=== PATIENT | male | born 1975 | race Caucasian/White ===

== ENCOUNTER 2021-10-19 14:42 | Outpatient (CLI) | payer OTHER, SELFPAY ==
--- NOTE | 2021-10-19 15:30 | CT_ITS ---
WS: [id number] CT TEMPORAL BONES TECHNIQUE: Noncontrast CT of the temporal bones with coronal and sagittal reformatted images. CLINICAL INFORMATION: chronic otitis media COMPARISON: Outside CT sinus August 17, 2021 DLP: 305.[address] scans at [facility] use at least one of these dose optimization techniques: automated e xposure control; mA and/or kV adjustment per patient size (includes targeted exams where dose is matc hed to clinical indication); or iterative reconstruction. FINDINGS: Mild mucosal thickening RIGHT mastoid tip. LEFT mastoid air cells well aerated. Normal post erior nasopharynx. Mild mucosal thickening RIGHT maxillary sinus. Visualized paranasal sinuses are we ll aerated. RIGHT: Mild mucosal thickening RIGHT mastoid tip. Previously described debris in the RIGHT external auditory canal has resolved. RIGHT EAC is well aerated today. Normal scutum. Ossicles are normal in appearanc e. Middle ear is well aerated. Normal tegmen tympani. Semicircular canals and cochlea are normal in a ppearance. Prussak's space is normal. Normal inner ear structures. Normal vestibular aqueduct. Facial nerve recess is normal. LEFT: Mastoid air cells are well aerated. Normal external auditory canal. Ossicles are normal in appearance . Middle ear is well aerated. Normal tegmen tympani. Semicircular canals and cochlea are normal in ap pearance. Prussak's space is normal. Normal inner ear structures. Normal vestibular aqueduct. Facial nerve recess is normal. Visualized intracranial contents and posterior fossa are normal. CT/CT temporal bone wo con* [id number] IMPRESSION: 1. Mild mucosal thickening RIGHT mastoid tip. RIGHT external auditory canal is well aerated today. 2. LEFT mastoid air cells well aerated. 3. Middle ears are well aerated bilaterally. 4. Ossicles are normal bilaterally. 5. Normal bilateral inner ear structures. 6. Visualized paranasal sinuses are well aerated. Mild mucosal thickening part ially visualized RIGHT maxillary sinus.
== END 2021-10-19 14:43 | disposition home or self-care (01) ==
PROVIDERS: Visit Provider Otolaryngology
DX: H66 Suppurative and unspecified otitis media (principal); H72.90 Unspecified perforation of tympanic membrane, unspecified ear
CPT/HCPCS: 70480